=== PATIENT | male | born 1995 | race Caucasian/White ===

== ENCOUNTER 2017-03-15 16:48 | Inpatient (IN) | payer MEDICAID ==
[~2017-03-15] VITALS: Ht 172.7 cm; Wt 73.7 kg
[2017-03-15] MEDS ORDERED: ceFAZolin 2 GM PREMIX 50 ML ONE (16:57)
[2017-03-15 16:59] VITALS: O2SAT 100
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
[2017-03-15 17:20] VITALS: BP 139/77; PULSE 95; RESP 20; O2SAT 100
[2017-03-15 17:24] VITALS: O2SAT 100
[2017-03-15 17:24] LABS: AUTOMATED NEUTROPHIL # 12.3 TH/MM3 (1.8-7.7); BASOPHIL # 0.1 TH/MM3 (0-0.2); BASOPHIL % 0.3 % (0.0-2.0); EOSINOPHIL # 0.1 TH/MM3 (0-0.4); EOSINOPHIL % 0.8 % (0.0-4.0); HEMATOCRIT 52.4 % (39.0-51.0); HEMO FLAGS DIFF FINAL; LYMPHOCYTE # 2.7 TH/MM3 (1.0-4.8); MEAN CELL VOLUME 85.7 FL (80.0-100.0); MEAN CORPUSCULAR HEMOGLOBIN 29.5 PG (27.0-34.0); MEAN CORPUSCULAR HGB CONC 34.5 % (32.0-36.0); MONO % 5.4 % (0.0-8.0); NEUT % 76.5 % (16.0-70.0); PLATELET COUNT 371 TH/MM3 (150-450); RED BLOOD COUNT 6.12 MIL/MM3 (4.50-5.90); RED CELL DISTRIBUTION WIDTH 13.7 % (11.6-17.2); WHITE BLOOD COUNT 16.1 TH/MM3 (4.0-11.0)
[2017-03-15 17:25] LABS: I-STAT POTASSIUM 3.3 MMOL/L (3.5-4.9)
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
[2017-03-15] MEDS ORDERED: IOHEXOL 350 MG/ML 10 ML VIAL (for RAD DIAG) IV ONE (17:27)
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
[2017-03-15 17:34] LABS: APTT (PATIENT) 24.7 SEC (24.3-30.1); PROTHROMBIN TIME - PATIENT 11.2 SEC (9.8-11.6)
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
[2017-03-15 18:09] VITALS: BP 122/66; PULSE 87; RESP 21; O2SAT 100
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
[2017-03-15] MEDS ORDERED: SODIUM CHLORIDE 0.9% FLUSH 10 ML FLUSH IV FLUSH PRN (18:45)
[2017-03-15] MEDS ORDERED: ACETAMINOPHEN/HYDROcodone 325 MG/5 MG TAB PO PRN (18:45)
[2017-03-15] MEDS ORDERED: ONDANSETRON HCL 4 MG/2 ML VIAL IV PRN ×2 (18:45→20:00)
[2017-03-15] MEDS ORDERED: MAGNESIUM HYDROXIDE SUSP 30 ML CUP PO PRN ×2 (18:45→20:00)
[2017-03-15] MEDS ORDERED: CHLORHEXIDINE GLUCONATE 2 % 1 PACK (2 CLOTHS) TOP PRN ×2 (18:45→20:00)
[2017-03-15] MEDS ORDERED: MISCELLANEOUS NURSING INFORMATION XX SCH ×2 (18:45→20:00)
[2017-03-15] MEDS ORDERED: SODIUM CHLOR 0.9% 1000 ML INJ 1,000 ML IV SCH (19:00)
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
[2017-03-15] MEDS ORDERED: HYDROmorphone HCL PF 1 MG/ML VIAL IV ONE (20:00)
[2017-03-15] MEDS ORDERED: SENNOSIDES 8.6 MG TAB PO PRN (20:00)
[2017-03-15] MEDS ORDERED: LEVETIRACETAM 1000 MG/100 ML IV ONE (20:00)
[2017-03-15] MEDS ORDERED: SODIUM PHOSPHATE INJ 30 MMOL in SODIUM CHLOR 0.9% 250 ML INJ 240 ML IV PRN (20:00)
[2017-03-15] MEDS ORDERED: BISACODYL 10 MG SUPP RECTAL PRN (20:00)
[2017-03-15] MEDS ORDERED: MAGNESIUM OXIDE 400 MG TAB PO PRN (20:00)
[2017-03-15] MEDS ORDERED: LACTULOSE SYRUP 20 GM/30 ML CUP PO PRN (20:00)
[2017-03-15] MEDS ORDERED: levETIRAcetam 500 MG/5 ML VIAL IV ONE (20:00)
[2017-03-15] MEDS ORDERED: ACETAMINOPHEN 325 MG TAB PO PRN (20:00)
[2017-03-15] MEDS ORDERED: POTASSIUM CHLOR 40 MEQ PREMIX 100 ML IV PRN ×2 (20:00)
[2017-03-15] MEDS ORDERED: MAGNESIUM SULFATE INJ 4 GM in SODIUM CHLORIDE 0.9% INJ 92 ML IV PRN (20:00)
[2017-03-15] MEDS ORDERED: POTASSIUM PHOSPHATE INJ 30 MMOL in SODIUM CHLOR 0.9% 250 ML INJ 250 ML IV PRN (20:00)
[2017-03-15] MEDS ORDERED: POTASSIUM PHOSPHATE MONOBASIC 500 MG TAB PO PRN (20:00)
[2017-03-15] MEDS ORDERED: POTASSIUM PHOSPHATE MONOBASIC 500 MG TAB PO/TUBE PRN (20:00)
[2017-03-15] MEDS ORDERED: POTASSIUM CHLOR 20 MEQ PREMIX 100 ML IV PRN (20:00)
[2017-03-15] MEDS ORDERED: MAGNESIUM SULFATE INJ 2 GM in SODIUM CHLORIDE 0.9% INJ 96 ML IV PRN (20:00)
[2017-03-15] MEDS ORDERED: POTASSIUM CHLORIDE 25 MEQ EFFERVESCENT TAB PO PRN (20:00)
[2017-03-15] MEDS: PANTOPRAZOLE SODIUM 40 MG VIAL IVP SCH (20:01)
[2017-03-15] MEDS: DOCUSATE SODIUM 100 MG CAP PO SCH (20:02)
--- NOTE | 2017-03-15 20:38 | RADRPT ---
EXAM DATE/TIME: 03/15/2017 20:18 [facility] COMPARISON: No previous studies available for comparison. INDICATIONS : Right anterior wrist pain. MEDICAL HISTORY : Unobtainable. SURGICAL HISTORY : Unobtainable. ENCOUNTER: Initial ACUITY: 1 day PAIN SCORE: 5/10 LOCATION: Right anterior wrist FINDINGS: A limited two-view examination of the right wrist was obtained and not a standard 3 view trauma serie s limiting the sensitivity the exam. This demonstrates no soft tissue swelling, dislocation, or fract ure. The joint spaces are maintained. Bony mineralization is normal. CONCLUSION: Negative limited 2 view study. Rogelio Dong MD on March 15, 2017 at 20:34 Board Certified Radiologist. This report was verified electronically.
[2017-03-15] MEDS: BACITRACIN TOP OINT 15 GM TUBE TOP SCH (21:00)
[2017-03-15] MEDS: SODIUM CHLOR 0.9% 1000 ML INJ 1,000 ML IV SCH (21:00)
[2017-03-15] MEDS: DOCUSATE SODIUM 50 MG/SENNA 8.6 MG TAB PO SCH (21:00)
[2017-03-15 22:00] VITALS: BP 126/76; PULSE 80; RESP 21; TEMP 99.2; O2SAT 99
[2017-03-15] MEDS: POTASSIUM CHLOR 20 MEQ PREMIX 100 ML IV PRN (22:25)
[2017-03-16] VITALS (11 sets, daily range): BP systolic 112–144; BP diastolic 61–83; PULSE 61–99; RESP 15–22; TEMP 96.7–99.6; O2SAT 97–100
[2017-03-16] MEDS: POTASSIUM CHLOR 20 MEQ PREMIX 100 ML IV PRN (03:28)
[2017-03-16] MEDS: CHLORHEXIDINE GLUCONATE 2 % 1 PACK (2 CLOTHS) TOP SCH (04:00)
[2017-03-16] MEDS ORDERED: CHLORHEXIDINE GLUCONATE 2 % 1 PACK (2 CLOTHS) TOP SCH (04:00)
[2017-03-16] MEDS: SODIUM CHLOR 0.9% 1000 ML INJ 1,000 ML IV SCH ×3 (05:12→20:34)
[2017-03-16] MEDS: levETIRAcetam INJ 500 MG in SODIUM CHLORIDE 0.9% INJ 100 ML IV SCH ×2 (05:12→18:19)
[2017-03-16] MEDS: ACETAMINOPHEN/HYDROcodone 325 MG/5 MG TAB PO PRN ×3 (05:47→20:33)
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
[2017-03-16 07:38] LABS: ALKALINE PHOSPHATASE 64 U/L (45-117); TOTAL BILIRUBIN ADULT 1.2 MG/DL (0.2-1.0)
[2017-03-16 07:39] LABS: AUTOMATED NEUTROPHIL # 12.3 TH/MM3 (1.8-7.7); BASOPHIL % 0.1 % (0.0-2.0); HEMO FLAGS DIFF FINAL; LYMPH % 9.4 % (9.0-44.0); LYMPHOCYTE # 1.4 TH/MM3 (1.0-4.8); MEAN CELL VOLUME 85.3 FL (80.0-100.0); MEAN CORPUSCULAR HEMOGLOBIN 30.3 PG (27.0-34.0); MEAN CORPUSCULAR HGB CONC 35.6 % (32.0-36.0); MONO % 8.4 % (0.0-8.0); NEUT % 82.1 % (16.0-70.0); PLATELET COUNT 273 TH/MM3 (150-450); RED BLOOD COUNT 5.28 MIL/MM3 (4.50-5.90); RED CELL DISTRIBUTION WIDTH 13.9 % (11.6-17.2)
[2017-03-16 07:42] LABS: ALT (GPT) 24 U/L (12-78); ANION GAP 8 MEQ/L (5-15); AST (GOT) 32 U/L (15-37); BICARBONATE 22.9 MEQ/L (21.0-32.0); BLOOD UREA NITROGEN 12 MG/DL (7-18); CHLORIDE 110 MEQ/L (98-107); GLOMERULAR FILTRATION RATE 67 ML/MIN (>89); SODIUM (NA) 141 MEQ/L (136-145)
[2017-03-16 07:51] LABS: MAGNESIUM 1.9 MG/DL (1.5-2.5)
[2017-03-16 07:52] LABS: POTASSIUM 4.3 MEQ/L (3.5-5.1)
--- NOTE | 2017-03-16 08:48 | RADRPT ---
EXAM DATE/TIME: 03/16/2017 08:03 [facility] COMPARISON: CT BRAIN W/O CONTRAST, March 15, 2017, 17:01. INDICATIONS : Follow up trauma. RADIATION DOSE: 42.00 CTDIvol (mGy) MEDICAL HISTORY : Seizures. SURGICAL HISTORY : None. ENCOUNTER: Initial ACUITY: 1 day PAIN SCALE: 0/10 LOCATION: cranial TECHNIQUE: Multiple contiguous axial images were obtained of the head. Using automated exposure control and adj ustment of the mA and/or kV according to patient size, radiation dose was kept as low as reasonably a chievable to obtain optimal diagnostic quality images. DICOM format image data is available electro nically for review and comparison. FINDINGS: One previous examination demonstrated a suspected subdural hemorrhage along the interhemispheric fiss ure with questionable intraparenchymal hemorrhage near the centrum semi-ovale on the right. Current examination demonstrates small area of parenchymal hemorrhage in the anterior right frontal h igh convexities with likely subtle subarachnoid hemorrhage overlying the anterior vertex and more sub tle increased densities along the left medial anterior frontal vertex likely reflecting more subtle s ubarachnoid blood products. There also punctate increased density seen in the frontoparietal high con vexities on the left which are more subtle and may reflect small parenchymal contusions. The posterio r aspect of the most cephalad interhemispheric fissure remains somewhat asymmetrically more prominent although the remainder of the mid interhemispheric fissure is more uniform in density in the current exam findings may reflect evolving extra-axial blood products in the interhemispheric fissure. No evidence for intraventricular blood products. Ventricles are normal in size and midline. Basilar c isterns are maintained. Posterior fossa and brainstem appear grossly unremarkable. The calvarium appe ars intact. CONCLUSION: 1. Followup CT examination confirms small area of intra-axial hemorrhage in the anterior right fronta l high convexities with very subtle suspected subarachnoid hemorrhage overlying the left and right an terior frontal high convexities with questionable small parenchymal contusions in the left frontopari etal high convexities. 2. Suspect evolving improving extra-axial blood products along the interhemispheric fissure. 3. Further evaluation may be performed with MRI exam as clinically warranted. Diogo Duncan MD on March 16, 2017 at 8:28 Board Certified Radiologist. This report was verified electronically.
[2017-03-16] MEDS: BACITRACIN TOP OINT 15 GM TUBE TOP SCH ×2 (09:00→20:35)
[2017-03-16] MEDS ORDERED: levETIRAcetam INJ 500 MG in SODIUM CHLORIDE 0.9% INJ 100 ML IV SCH (09:45)
[2017-03-16] MEDS: DOCUSATE SODIUM 50 MG/SENNA 8.6 MG TAB PO SCH ×2 (09:54→20:31)
[2017-03-16] MEDS: DOCUSATE SODIUM 100 MG CAP PO SCH ×2 (09:54→20:31)
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
[2017-03-16] MEDS: REMOVE OLD PATCH T-DERMAL SCH (14:00)
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
[2017-03-16] MEDS: METHOCARBAMOL 500 MG TAB PO SCH ×2 (15:02→20:35)
[2017-03-16] MEDS: NICOTINE 21 MG/24 HR PATCH T-DERMAL SCH (16:13)
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
[2017-03-16] MEDS: LIDOCAINE HCL 5% PATCH T-DERMAL SCH (18:17)
[2017-03-16] MEDS: PANTOPRAZOLE SODIUM 40 MG VIAL IVP SCH (20:31)
[2017-03-16] MEDS ORDERED: DOCU1CAP39 PO (20:38)
[2017-03-16] MEDS ORDERED: MAGN400S PO (20:38)
[2017-03-16 23:24] LABS: AMPHETAMINE, URINE NEG (NEG); BARBITURATES, URINE NEG (NEG); COCAINE, URINE NEG (NEG)
[2017-03-17] MEDS: ACETAMINOPHEN/HYDROcodone 325 MG/5 MG TAB PO PRN ×2 (00:35→06:16)
[2017-03-17 02:05] VITALS: BP 129/76; PULSE 83; RESP 20; TEMP 97.2; O2SAT 100
[2017-03-17] MEDS: CHLORHEXIDINE GLUCONATE 2 % 1 PACK (2 CLOTHS) TOP SCH (03:31)
[2017-03-17] MEDS: SODIUM CHLOR 0.9% 1000 ML INJ 1,000 ML IV SCH ×2 (05:00→09:12)
[2017-03-17 05:40] VITALS: BP 108/67; PULSE 82; RESP 18; TEMP 96.5; O2SAT 100
[2017-03-17] MEDS: METHOCARBAMOL 500 MG TAB PO SCH (06:16)
[2017-03-17] MEDS: levETIRAcetam INJ 500 MG in SODIUM CHLORIDE 0.9% INJ 100 ML IV SCH (06:17)
[2017-03-17 07:41] VITALS: BP 120/71; PULSE 82; RESP 20; TEMP 96.9; O2SAT 99
[2017-03-17] MEDS: DOCUSATE SODIUM 100 MG CAP PO SCH (08:19)
[2017-03-17] MEDS: DOCUSATE SODIUM 50 MG/SENNA 8.6 MG TAB PO SCH (08:19)
[2017-03-17] MEDS: LIDOCAINE HCL 5% PATCH T-DERMAL SCH (08:20)
[2017-03-17] MEDS: NICOTINE 21 MG/24 HR PATCH T-DERMAL SCH (08:20)
[2017-03-17] MEDS: REMOVE OLD PATCH T-DERMAL SCH (08:20)
[2017-03-17] MEDS: BACITRACIN TOP OINT 15 GM TUBE TOP SCH (08:22)
[2017-03-17 09:36] VITALS: O2SAT 100
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
[2017-03-17] MEDS ORDERED: HYDR-3516 PO (11:52)
[2017-03-17] MEDS ORDERED: LEVE500 PO (11:53)
[2017-03-17 12:38] VITALS: BP 101/55; PULSE 68; RESP 20; TEMP 96.8; O2SAT 99
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
== END 2017-03-17 13:52 | disposition home or self-care (01) | DRG 83 ==
LOC: NEPI 16:48 → EDBD 17:57 → NEDA 17:57 → N03B 18:39 → N05A 03-16 10:48
PROVIDERS: ADMIT Surgery; ATTEND Surgery
DX: S06.5X9A Traumatic subdural hemorrhage with loss of consciousness of unspecified duration, initial encounter (principal); S22.32XA Fracture of one rib, left side, initial encounter for closed fracture; R56.1 Post traumatic seizures; S63.501A Unspecified sprain of right wrist, initial encounter; H73.892 Other specified disorders of tympanic membrane, left ear; R40.2421 Glasgow coma scale score 9-12, in the field [EMT or ambulance]; V23.4XXA Motorcycle driver injured in collision with car, pick-up truck or van in traffic accident, initial encounter; Y92.410 Unspecified street and highway as the place of occurrence of the external cause
CPT/HCPCS: 70450; 71010; 71260; 72125; 72170; 73100; 74177; 76937; 80053; 80307; 82435; 82565; 82947; 83735; 84100; 84132; 84295; 84520; 85025; 85610; 85730; 86850; 86900; 86901; 87641; 94150; 94640; 94667; 94668; 95819; 96374; 99291; C9113; G0390; J0690; J1170; J1953; J2405; J3480; J7030; Q9967